=== PATIENT | female | born 1965 | race Two or more races ===

== ENCOUNTER 2017-03-14 17:27 | Emergency (ER) | payer SELFPAY ==
[~2017-03-14] VITALS: Ht 157.5 cm; Wt 90.7 kg
[2017-03-14 17:58] VITALS: BP_SYST 126
--- NOTE | 2017-03-14 18:41 | NUR ---
Pt to chair 1 for exam.
--- NOTE | 2017-03-14 18:42 | NUR ---
Pt brought by self, A&Ox4, pt c/o cough, fever, headache, dizziness, N/V x 3 days, skin pink and warm, cap refill <3, respirations even and unlabored, pt wering mask at this time.
[2017-03-14] MEDS ORDERED: ONDANSETRON 4 MG ODT TAB PO ONE (18:45)
[2017-03-14] MEDS ORDERED: ACETAMINOPHEN 500 MG TABLET PO ONE (18:45)
[2017-03-14] MEDS ORDERED: OSELTAMIVIR PHOSPHATE 75 MG CAPSULE PO ONE (18:45)
--- NOTE | 2017-03-14 18:45 | NUR ---
Justina Winslow [employer] at bedside examining patient
[2017-03-14 19:15] VITALS: BP_SYST 126
--- NOTE | 2017-03-14 19:15 | NUR ---
Patient given written and verbal discharge instructions and verbalizes understanding. ER MD discussed with patient the results and treatment provided. Patient in stable condition. ID arm band removed. Rx of Zofran, Tamiflu, Motrin, and Tylenol ES given. Patient educated on pain management and to follow up with PMD. Pain Scale 0/10. Opportunity for questions provided and answered.
== END 2017-03-14 19:15 | disposition home or self-care (01) ==
LOC: SED 17:27
DX: J09.X2 Influenza due to identified novel influenza A virus with other respiratory manifestations (principal); Z88.5 Allergy status to narcotic agent
CPT/HCPCS: 36415; 86710; 99284; G9035; Q0162

== ENCOUNTER 2017-08-23 13:15 | Emergency (ER) | payer OTHER ==
[~2017-08-23] VITALS: Ht 177.8 cm; Wt 93.0 kg
[2017-08-23 13:35] VITALS: BP_SYST 125
[2017-08-23] MEDS ORDERED: ASPIRIN 81 MG TAB.CHEW PO ONE (13:45)
[2017-08-23 14:21] LABS: CALCIUM 8.5 mg/dL (8.4-11.0); CREATININE 0.82 mg/dL (0.55-1.30); POTASSIUM 3.7 mmol/L (3.5-5.1)
[2017-08-23 14:22] LABS: BASOPHILS % (AUTO) 0.2 % (0.0-2.0); EOSINOPHILS # (AUTO) 0.1 K/uL (0.0-0.4); EOSINOPHILS % (AUTO) 1.6 % (0.0-4.0); HEMATOCRIT 38.8 % (36-48); HEMOGLOBIN 11.7 g/dL (12.0-16.0); LYMPHOCYTES # (AUTO) 2.4 K/uL (1.0-5.5); MEAN CORPUSCULAR HEMOGLOBIN 21 pg (27-31); MEAN CORPUSCULAR HGB CONC 30 % (32-36); MEAN CORPUSCULAR VOLUME 68 fL (79.0-98.0); MONOCYTES # (AUTO) 0.5 K/uL (0.0-1.0); MONOCYTES % (AUTO) 6.7 % (1.7-9.3); NEUTROPHILS # (AUTO) 4.4 K/uL (1.8-7.7); NEUTROPHILS % (AUTO) 58.5 % (40.0-70.0); PLATELET COUNT (AUTO) 207 K/uL (130-430); RED BLOOD CELL COUNT(AUTO) 5.74 MIL/uL (4.2-6.2); RED CELL DISTRIBUTION WIDTH 18.5 % (9.0-15.0); WHITE BLOOD COUNT (AUTO) 7.4 K/uL (4.8-10.8)
[2017-08-23 14:25] LABS: ALBUMIN 3.5 g/dL (3.4-4.8); TOTAL BILIRUBIN 0.3 mg/dL (0.0-1.0)
[2017-08-23 14:38] LABS: INR 1.1 (0.8-1.2); PROTHROMBIN TIME 10.7 SECS (9.5-12.5)
[2017-08-23 16:24] VITALS: BP_SYST 123
== END 2017-08-23 16:18 | disposition home or self-care (01) ==
LOC: SED 13:15
DX: R07.89 Other chest pain (principal); K59.00 Constipation, unspecified; Z88.5 Allergy status to narcotic agent
CPT/HCPCS: 36415; 71045; 80053; 80061; 82550-TC; 83690-TC; 83880; 84484; 85025; 85610-TC; 85730-TC; 93005; 99285

== ENCOUNTER 2018-11-15 22:55 | Emergency (ER) | payer OTHER ==
[~2018-11-15] VITALS: Ht 154.9 cm; Wt 95.3 kg
[2018-11-15 23:00] VITALS: BP_SYST 113
--- NOTE | 2018-11-15 23:10 | NUR ---
Patient to ER bed 1 to gown for evaluation. Side rails up. Report given to Roxie ARGUELLO.
--- NOTE | 2018-11-15 23:15 | NUR ---
Pt came to the ED for R flank pain and LLE swelling. Reports that swelling has been present for a month. However, has not seen her PCP regarding issues. Reports that her pain of LLE is 10/10. Denies chest pain or SOB. R flank pain has been present for a month. Denies burning, urgency and frequency. Denies n/v/d or fever. No other complaints/injuries noted. Will cont. to monitor.
--- NOTE | 2018-11-15 23:30 | NUR ---
ER at bedside examining patient.
[2018-11-15 23:43] LABS: BILIRUBIN,URINE NEGATIVE (NEGATIVE); CLARITY/URINE CLEAR (CLEAR); COLOR,URINE YELLOW (YELLOW); GLUCOSE,URINE NEGATIVE (NEGATIVE); KETONES,URINE NEGATIVE (NEGATIVE); LEUKOCYTE ESTERASE ,URINE 2+ (NEGATIVE); NITRITE, URINE NEGATIVE (NEGATIVE); PH,URINE 5.5 (5.0-8.0); PROTEIN URINE NEGATIVE (NEGATIVE); UROBILINOGEN,URINE 0.2 (0.2-1.0)
[2018-11-15 23:47] LABS: BLOOD, URINE TRACE (NEGATIVE)
[2018-11-15 23:50] LABS: BACTERIA,URINE MODERATE /HPF (None Seen)
[2018-11-16 00:43] LABS: BASOPHILS % (AUTO) 0.4 % (0.0-2.0); EOSINOPHILS # (AUTO) 0.2 K/uL (0.0-0.4); EOSINOPHILS % (AUTO) 2.1 % (0.0-4.0); HEMATOCRIT 38.6 % (36-48); HEMOGLOBIN 12.2 g/dL (12.0-16.0); LYMPHOCYTES # (AUTO) 3.1 K/uL (1.0-5.5); LYMPHOCYTES % (AUTO) 40.8 % (20.5-51.5); MEAN CORPUSCULAR HEMOGLOBIN 21 pg (27-31); MEAN CORPUSCULAR HGB CONC 32 % (32-36); MEAN CORPUSCULAR VOLUME 68 fL (79.0-98.0); MONOCYTES # (AUTO) 0.5 K/uL (0.0-1.0); MONOCYTES % (AUTO) 7.1 % (1.7-9.3); NEUTROPHILS # (AUTO) 3.7 K/uL (1.8-7.7); NEUTROPHILS % (AUTO) 49.6 % (40.0-70.0); PLATELET COUNT (AUTO) 188 K/uL (130-430); RED BLOOD CELL COUNT(AUTO) 5.71 MIL/uL (4.2-6.2); WHITE BLOOD COUNT (AUTO) 7.5 K/uL (4.8-10.8)
[2018-11-16 00:59] LABS: CALCIUM 8.5 mg/dL (8.4-11.0); CREATININE 0.84 mg/dL (0.55-1.30); POTASSIUM 3.6 mmol/L (3.5-5.1)
[2018-11-16 01:10] LABS: ALBUMIN 3.3 g/dL (3.4-4.8); TOTAL BILIRUBIN 0.2 mg/dL (0.0-1.0)
--- NOTE | 2018-11-16 02:01 | NUR ---
Ultrasound at bedside.
[2018-11-16] MEDS ORDERED: cefTRIAXone 1 GM IVPB PREMIX 50 ML IV ONE (02:30)
--- NOTE | 2018-11-16 03:00 | NUR ---
PT resting comfortably in bed, no signs of acute distress. Will cont. to monitor.
[2018-11-16] MEDS: CEPHALEXIN 500 MG CAPSULE PO ONE (03:16)
[2018-11-16] MEDS ORDERED: CEPHALEXIN 500 MG CAPSULE ONE (03:25)
[2018-11-16 04:01] VITALS: BP_SYST 113
--- NOTE | 2018-11-16 04:01 | NUR ---
Patient given written and verbal discharge instructions and verbalizes understanding. ER MD Dr. Howard discussed with patient the results and treatment provided. Patient in stable condition. ID arm band removed. Rx of keflex and ibuprofen given. Patient educated on pain management and to follow up with PMD. Pain Scale 0/10. Opportunity for questions provided and answered. Medication side effect fact sheet provided.
== END 2018-11-16 04:01 | disposition home or self-care (01) ==
LOC: SED 22:55
DX: N39.0 Urinary tract infection, site not specified (principal); K42.9 Umbilical hernia without obstruction or gangrene; Z88.6 Allergy status to analgesic agent; Z88.5 Allergy status to narcotic agent
CPT/HCPCS: 36415; 80053; 81000-TC; 85025; 85379; 87086; 93971; 99284

== ENCOUNTER 2018-12-09 13:59 | Emergency (ER) | payer OTHER ==
[~2018-12-09] VITALS: Ht 154.9 cm; Wt 95.3 kg
[2018-12-09 14:20] VITALS: BP_SYST 137
[2018-12-09 15:32] LABS: BASOPHILS # (AUTO) 0.1 K/uL (0.0-0.2); BASOPHILS % (AUTO) 0.7 % (0.0-2.0); EOSINOPHILS # (AUTO) 0.1 K/uL (0.0-0.4); EOSINOPHILS % (AUTO) 1.9 % (0.0-4.0); HEMATOCRIT 40.1 % (36-48); HEMOGLOBIN 12.5 g/dL (12.0-16.0); LYMPHOCYTES % (AUTO) 38.5 % (20.5-51.5); MEAN CORPUSCULAR HEMOGLOBIN 21 pg (27-31); MEAN CORPUSCULAR HGB CONC 31 % (32-36); MEAN CORPUSCULAR VOLUME 68 fL (79.0-98.0); MONOCYTES # (AUTO) 0.5 K/uL (0.0-1.0); MONOCYTES % (AUTO) 6.4 % (1.7-9.3); NEUTROPHILS # (AUTO) 4.1 K/uL (1.8-7.7); NEUTROPHILS % (AUTO) 52.5 % (40.0-70.0); PLATELET COUNT (AUTO) 194 K/uL (130-430); RED BLOOD CELL COUNT(AUTO) 5.87 MIL/uL (4.2-6.2); RED CELL DISTRIBUTION WIDTH 19.2 % (9.0-15.0); WHITE BLOOD COUNT (AUTO) 7.9 K/uL (4.8-10.8)
[2018-12-09 15:42] LABS: CALCIUM 8.7 mg/dL (8.4-11.0); CREATININE 0.72 mg/dL (0.55-1.30); POTASSIUM 4.2 mmol/L (3.5-5.1)
[2018-12-09 15:45] LABS: INR 1.1 (0.8-1.2)
[2018-12-09 16:18] LABS: ERYTHROCYTE SEDIMENTATION RATE 19 MM/HR (0-20)
[2018-12-09 18:57] VITALS: BP_SYST 134
== END 2018-12-09 18:57 | disposition home or self-care (01) ==
LOC: SED 13:59
DX: M79.661 Pain in right lower leg (principal); R03.0 Elevated blood-pressure reading, without diagnosis of hypertension; F41.9 Anxiety disorder, unspecified; Z88.6 Allergy status to analgesic agent
CPT/HCPCS: 36415; 80048; 85025; 85610-TC; 85651-TC; 85730-TC; 93971; 99284

== ENCOUNTER 2021-02-02 11:14 | Emergency (ER) | payer OTHER ==
[~2021-02-02] VITALS: Ht 152.4 cm; Wt 90.7 kg
[2021-02-02 11:57] VITALS: BP_SYST 132
[2021-02-02] MEDS ORDERED: HYDROcodone/ACETAMIN 5-325 MG TAB (NORCO/ VICODIN) PO ONE (12:15)
[2021-02-02] MEDS ORDERED: HYDR-3917 PO (12:48)
[2021-02-02] MEDS ORDERED: NAPR-688 PO (12:48)
[2021-02-02 12:57] VITALS: BP_SYST 145
--- NOTE | 2021-02-02 12:58 | NUR ---
Patient given written and verbal discharge instructions and verbalizes understanding. MARTI ESCOBAR MD discussed with patient the results and treatment provided. Patient in stable condition. ID arm band removed. Rx of NAPROXEN, HYDROCODONE given. Patient educated on pain management and to follow up with PMD. Pain Scale 1. Opportunity for questions provided and answered. Medication side effect fact sheet provided.
== END 2021-02-02 12:57 | disposition home or self-care (01) ==
LOC: SED 11:14
DX: S29.012A Strain of muscle and tendon of back wall of thorax, initial encounter (principal); F41.9 Anxiety disorder, unspecified; Z88.5 Allergy status to narcotic agent; Z79.899 Other long term (current) drug therapy; X50.0XXA Overexertion from strenuous movement or load, initial encounter; Y93.89 Activity, other specified; Y92.89 Other specified places as the place of occurrence of the external cause; Y99.8 Other external cause status
CPT/HCPCS: 99283

== ENCOUNTER 2021-06-16 23:11 | Emergency (ER) | payer OTHER ==
[~2021-06-16] VITALS: Ht 157.5 cm; Wt 90.7 kg
[~2021-06-16 23:11] MED LIST: HYDR-3917 PO; NAPR-688 PO
[2021-06-16 23:20] VITALS: BP_SYST 138
[2021-06-17] MEDS ORDERED: ASPIRIN 325 MG TABLET PO ONE
[2021-06-17 02:06] LABS: ANION GAP 7 (5-15); CALCIUM 8.9 mg/dL (8.4-11.0); CHLORIDE 103 mmol/L (98-107); CREATININE 0.66 mg/dL (0.55-1.30); GLUCOSE 93 mg/dL (70-99); SODIUM SERUM 141 mmol/L (136-145); UREA NITROGEN, BLOOD 15 mg/dL (8-21)
[2021-06-17 02:10] LABS: GFR AFRICAN AMERICAN 119 mL/min (>90)
[2021-06-17 02:15] LABS: ALANINE AMINOTRANSFERASE 30 U/L (12-78); ALBUMIN 3.5 g/dL (3.4-4.8); ASPARTATE AMINOTRANSFERASE 17 U/L (10-37); TOTAL BILIRUBIN 0.1 mg/dL (0.0-1.0)
[2021-06-17 02:25] LABS: BASOPHILS % (AUTO) 0.4 % (0.0-2.0); EOSINOPHILS # (AUTO) 0.1 K/uL (0.0-0.4); EOSINOPHILS % (AUTO) 1.4 % (0.0-4.0); HEMOGLOBIN 13.3 g/dL (12.0-16.0); LYMPHOCYTES % (AUTO) 36.3 % (20.5-51.5); MEAN CORPUSCULAR HEMOGLOBIN 22 pg (27-31); MEAN CORPUSCULAR HGB CONC 32 % (32-36); MEAN CORPUSCULAR VOLUME 69 fL (79.0-98.0); MONOCYTES # (AUTO) 0.6 K/uL (0.0-1.0); MONOCYTES % (AUTO) 7.2 % (1.7-9.3); NEUTROPHILS # (AUTO) 4.6 K/uL (1.8-7.7); NEUTROPHILS % (AUTO) 54.7 % (40.0-70.0); PLATELET COUNT (AUTO) 203 K/uL (130-430); RED BLOOD CELL COUNT(AUTO) 6.09 MIL/uL (4.2-6.2); RED CELL DISTRIBUTION WIDTH 18.3 % (9.0-15.0); WHITE BLOOD COUNT (AUTO) 8.3 K/uL (4.8-10.8)
[2021-06-17] MEDS ORDERED: LORazepam 1 MG TABLET PO ONE (03:15)
[2021-06-17 04:20] VITALS: BP_SYST 132
== END 2021-06-17 04:20 | disposition home or self-care (01) ==
LOC: SED 23:11
DX: R00.2 Palpitations (principal); F41.9 Anxiety disorder, unspecified; Z88.5 Allergy status to narcotic agent; Z79.899 Other long term (current) drug therapy
CPT/HCPCS: 36415; 71045; 80053; 83880; 84484; 85025; 93005; 99285

== ENCOUNTER 2023-04-17 19:21 | Emergency (ER) | payer OTHER ==
[~2023-04-17] VITALS: Ht 154.9 cm; Wt 95.3 kg
[2023-04-17 19:31] VITALS: BP_SYST 153; PULSE 74; RESP 18; TEMP 96.8; O2SAT 97
[2023-04-17 20:39] LABS: BASOPHILS % (AUTO) 0.5 % (0.0-2.0); EOSINOPHILS # (AUTO) 0.1 K/uL (0.0-0.4); EOSINOPHILS % (AUTO) 2.2 % (0.0-4.0); HEMATOCRIT 38.5 % (36-48); HEMOGLOBIN 12.4 g/dL (12.0-16.0); LYMPHOCYTES # (AUTO) 2.5 K/uL (1.0-5.5); LYMPHOCYTES % (AUTO) 40.1 % (20.5-51.5); MEAN CORPUSCULAR HEMOGLOBIN 23 pg (27-31); MEAN CORPUSCULAR HGB CONC 32 % (32-36); MEAN CORPUSCULAR VOLUME 70 fL (79.0-98.0); MONOCYTES # (AUTO) 0.5 K/uL (0.0-1.0); MONOCYTES % (AUTO) 7.6 % (1.7-9.3); NEUTROPHILS # (AUTO) 3.1 K/uL (1.8-7.7); NEUTROPHILS % (AUTO) 49.6 % (40.0-70.0); PLATELET COUNT (AUTO) 180 K/uL (130-430); RED BLOOD CELL COUNT(AUTO) 5.47 MIL/uL (4.2-6.2); RED CELL DISTRIBUTION WIDTH 17.8 % (9.0-15.0); WHITE BLOOD COUNT (AUTO) 6.2 K/uL (4.8-10.8)
[2023-04-17 21:09] LABS: ANION GAP 9 (5-15); CARBON DIOXIDE 28 mmol/L (23-29); CHLORIDE 104 mmol/L (98-107); CREATININE 0.84 mg/dL (0.55-1.30); GFR AFRICAN AMERICAN 90 mL/min (>90); GLUCOSE 204 mg/dL (74-106); POTASSIUM 3.6 mmol/L (3.5-5.1); SODIUM SERUM 141 mmol/L (136-145); UREA NITROGEN, BLOOD 14 mg/dL (8-21)
[2023-04-17 21:25] LABS: GFR NON AFRICAN-AMERICAN 74 mL/min (>90)
[2023-04-17] MEDS ORDERED: IBUP-1969 PO (21:43)
== END 2023-04-17 22:12 | disposition home or self-care (01) ==
LOC: SED 19:21
DX: R07.9 Chest pain, unspecified (principal); Z88.5 Allergy status to narcotic agent; Z79.899 Other long term (current) drug therapy
CPT/HCPCS: 36415; 71045; 80048; 83037; 84484; 85025; 93005; 99285